=== PATIENT | male | born 1955 | race Caucasian/White ===

== ENCOUNTER 2017-07-17 11:21 | Emergency (ER) | payer OTHER ==
[~2017-07-17] VITALS: Ht 177.8 cm; Wt 91.3 kg
[~2017-07-17 11:21] MED LIST: ENOX40SY4 SQ; FERR325T18 PO; HYDR-882 PO; HYDR2TAB29 PO; METF10002 PO; MORP-52 PO; OXYC1TAB8 PO; PARO40TA61 PO; SULF1TAB24 PO; [UNRECOGNIZED DRUG - OTHER] PO; [UNRECOGNIZED DRUG - OTHER] PO
[2017-07-17 12:49] LABS: PATH.CAST-FLAG NOT PRESENT; SPERM-FLAG NOT PRESENT; SRC-FLAG NOT PRESENT; XTAL-FLAG NOT PRESENT; YLC-FLAG NOT PRESENT
[2017-07-17 12:54] LABS: HEMATOCRIT 40.9 % (39.2-51.8); HEMOGLOBIN 13.8 g/dL (13.7-18.0); WHITE BLOOD COUNT 5.2 x10^3/uL (3.4-10)
[2017-07-17 13:02] LABS: BLOOD UREA NITROGEN 20 mg/dL (7-18)
[2017-07-17 13:18] LABS: IS PT STATUS REG ER OR PRE ER? YES
[2017-07-17] MEDS ORDERED: CEFDINIR 300 MG CAPSULE PO ONE (13:30)
[2017-07-17 14:37] VITALS: BP 124/73
== END 2017-07-17 14:39 | disposition home or self-care (01) ==
LOC: ED 12:21
DX: E11.65 Type 2 diabetes mellitus with hyperglycemia (principal); N30.90 Cystitis, unspecified without hematuria; R41.3 Other amnesia; E11.40 Type 2 diabetes mellitus with diabetic neuropathy, unspecified; Z88.5 Allergy status to narcotic agent; Z88.6 Allergy status to analgesic agent
CPT/HCPCS: 36415; 70450; 80048; 81001; 82040; 82962; 83605; 84484; 85025; 87086; 93005; 99285

== ENCOUNTER 2017-08-01 17:39 | Emergency (ER) | payer OTHER ==
[~2017-08-01] VITALS: Ht 177.8 cm; Wt 88.0 kg
[2017-08-01 17:41] VITALS: BP 115/71
[2017-08-01] MEDS ORDERED: SODIUM CHLORIDE 0.9% 1,000ML IVBOLUS ONE (18:00)
[2017-08-01 18:21] LABS: HEMATOCRIT 42.8 % (39.2-51.8); HEMOGLOBIN 14.8 g/dL (13.7-18.0); WHITE BLOOD COUNT 4.5 x10^3/uL (3.4-10)
[2017-08-01 18:22] LABS: PH, VENOUS 7.274 pH (7.320-7.420)
[2017-08-01 18:30] LABS: ASPARTATE AMINO TRANSFERASE 24 U/L (15-37); BLOOD UREA NITROGEN 20 mg/dL (7-18)
== END 2017-08-01 20:09 | disposition left against medical advice (07) ==
LOC: ED 20:03
DX: E11.65 Type 2 diabetes mellitus with hyperglycemia (principal); Z91.14 Patient's other noncompliance with medication regimen
CPT/HCPCS: 36415; 80053; 82010; 82803; 82962; 85025; 99284

== ENCOUNTER 2018-02-09 11:04 | Inpatient (IN) | payer OTHER ==
[~2018-02-09] VITALS: Ht 177.8 cm; Wt 77.2 kg
[~2018-02-09 11:04] MED LIST changes: +THROMBIN 5,000 UNIT VIAL TP ONE; +TRANEXAMIC ACID 100 MG/ML, 10ML ONE; +VANCOMYCIN 1,000 MG ONE
[2018-02-09 12:02] VITALS: BP 118/74
[2018-02-09] MEDS ORDERED: LACTATED RINGERS 1,000 ML IV SCH (12:06)
[2018-02-09 12:34] LABS: BASOPHILS # (AUTO) 0.04 x10^3/uL (0-0.1); BASOPHILS % (AUTO) 1 % (0-1); EOSINOPHILS # (AUTO) 0.43 x10^3/uL (0-0.4); EOSINOPHILS % (AUTO) 9 % (1-7); LYMPHOCYTES # (AUTO) 2.22 x10^3/uL (1-3.4); LYMPHOCYTES % (AUTO) 45 % (22-44); MD NO; MEAN CORPUSCULAR HEMOGLOBIN 29.6 pg (27.5-34.5); MEAN CORPUSCULAR HGB CONC 33.3 g/dL (33.2-36.2); MEAN CORPUSCULAR VOLUME 88.9 fL (81-97); MEAN PLATELET VOLUME 6.5 fL (7.4-10.4); MONOCYTES # (AUTO) 0.56 x10^3/uL (0.2-0.8); MONOCYTES % (AUTO) 11 % (2-9); NEUTROPHILS # (AUTO) 1.72 x10^3/uL (1.8-6.8); NEUTROPHILS % (AUTO) 35 % (42-75); PLATELET COUNT 368 x10^3/uL (130-400); RED BLOOD COUNT 4.54 x10^6/uL (4.38-5.82); RED CELL DISTRIBUTION WIDTH 17.5 % (9.4-14.8)
[2018-02-09 12:43] LABS: ANION GAP 4 mmol/L (5-15); CALCIUM 9.4 mg/dL (8.5-10.1); CHLORIDE 107 mmol/L (98-107); CREATININE 0.75 mg/dL (0.7-1.3)
[2018-02-09] MEDS ORDERED: ONDANSETRON 2MG/ML, 2ML ONE (13:38)
[2018-02-09] MEDS ORDERED: MIDAZOLAM 1 MG/ML, 2ML ONE (13:38)
[2018-02-09] MEDS ORDERED: FENTANYL PF 250 MCG/5ML ONE (13:38)
[2018-02-09] MEDS ORDERED: CEFAZOLIN 1,000 MG ONE (13:38)
[2018-02-09] MEDS ORDERED: PROPOFOL 10 MG/ML, 20ML ONE (13:38)
[2018-02-09] MEDS ORDERED: BUPIVACAINE LIPOSOME/PF INFIL ONE (14:00)
[2018-02-09] MEDS ORDERED: TRANEXAMIC ACID 100 MG/ML, 10ML ONE ×3 (14:05)
[2018-02-09] MEDS ORDERED: BUPIVACAINE/PF 0.5% ONE (14:17)
[2018-02-09] MEDS ORDERED: EPINEPHRINE 1 MG/ML, 1ML ONE (14:17)
[2018-02-09] MEDS ORDERED: PROPOFOL 50 ML ONE ×2 (14:41→15:22)
[2018-02-09] MEDS ORDERED: BUPIVACAINE/PF-EPI 0.5% 1:200K INFIL ONE (14:43)
[2018-02-09 15:32] LABS: MICROSCOPIC AUTO
[2018-02-09 15:35] LABS: CULTURE INDICATED? NO
[2018-02-09 15:47] LABS: INTERNATIONAL NORMALIZED RATIO 1.01 (0.93-1.1); PROTHROMBIN TIME 10.5 Seconds (9.6-11.5)
[2018-02-09] MEDS ORDERED: PROMETHAZINE 25 MG/ML, 1ML IV PRN (17:00)
[2018-02-09] MEDS ORDERED: LORazepam 2 MG/ML, 1ML IVPush PRN (17:00)
[2018-02-09] MEDS ORDERED: HYDROcodone/APAP 7.5-325MG/15ML UDC PO PRN (17:00)
[2018-02-09] MEDS ORDERED: HYDROmorphone 1 MG/ML, 1ML IV PRN (17:00)
[2018-02-09] MEDS ORDERED: LABETALOL 5MG/ML, 20ML IV PRN (17:00)
[2018-02-09] MEDS ORDERED: hydrALAzine 20 MG/ML, 1ML IV PRN (17:00)
[2018-02-09] MEDS ORDERED: PROMETHAZINE 12.5 MG SUPP PR PRN (17:00)
[2018-02-09] MEDS ORDERED: ALBUTEROL SULFATE 2.5 MG/3 ML NPPB PRN (17:00)
[2018-02-09] MEDS ORDERED: MEPERIDINE/PF 25MG/0.5ML IVPush PRN (17:00)
[2018-02-09] MEDS ORDERED: CEFAZOLIN 0 MG in SODIUM CHLORIDE 0.9% 50 ML IV SCH (17:30)
[2018-02-09] MEDS ORDERED: OXYcodone/APAP 5/325MG TABLET PO PRN (17:30)
[2018-02-09] MEDS ORDERED: ONDANSETRON 2MG/ML, 2ML IVPush PRN (17:30)
[2018-02-09] MEDS ORDERED: MORPHINE SULFATE 4 MG/ML, 1ML IVPush PRN (17:30)
[2018-02-09] MEDS ORDERED: HYDROcodone/APAP 7.5-325MG/15ML UDC ONE (17:56)
[2018-02-09] MEDS ORDERED: morphine SULFATE 10 MG/ML, 1ML ONE (17:56)
[2018-02-09] MEDS: morphine SULFATE 10 MG/ML, 1ML IV PRN ×2 (18:00→18:14)
[2018-02-09] MEDS ORDERED: FENTANYL PF 100 MCG/2ML ONE (18:08)
[2018-02-09] MEDS: FENTANYL PF 100 MCG/2ML IV PRN ×2 (18:09→18:18)
[2018-02-09 19:05] VITALS: BP 128/77
[2018-02-09] MEDS: metFORMIN 500 MG TABLET PO SCH (21:26)
[2018-02-09] MEDS: D5%-0.45NACL+KCL 20MEQ 1,000 ML IV SCH (21:26)
[2018-02-09] MEDS: CEFAZOLIN 2,000 MG in DEXTROSE 5% 50 ML IVPB SCH (21:27)
[2018-02-10 00:19] VITALS: BP 102/57
[2018-02-10] MEDS: DIAZEPAM 5 MG/ML, 10ML VIAL IV PRN (01:34)
[2018-02-10 03:29] VITALS: BP 100/55
[2018-02-10] MEDS: CEFAZOLIN 2,000 MG in DEXTROSE 5% 50 ML IVPB SCH (06:12)
[2018-02-10] MEDS: D5%-0.45NACL+KCL 20MEQ 1,000 ML IV SCH ×2 (06:39→20:00)
[2018-02-10 07:47] VITALS: BP 99/50
[2018-02-10] MEDS: DARUNAVIR HOMEMEDPO SCH (09:00)
[2018-02-10] MEDS ORDERED: EMTRICITABINE/TENOFOVIR 200 MG/300 MG TABLET PO SCH (09:00)
[2018-02-10] MEDS: COBICISTAT HOMEMEDPO SCH (09:00)
[2018-02-10] MEDS: PAROXETINE 20 MG TABLET PO SCH (09:00)
[2018-02-10] MEDS: TENOFOVIR HOMEMEDPO SCH (09:00)
[2018-02-10] MEDS: EMTRICITABINE HOMEMEDPO SCH (09:00)
[2018-02-10] MEDS: metFORMIN 500 MG TABLET PO SCH ×2 (09:00→22:07)
[2018-02-10] MEDS ORDERED: [UNRECOGNIZED DRUG - OTHER] PO SCH (09:00)
[2018-02-10] MEDS: INSULIN REGULAR 100 UNITS/ML, 3ML VIAL SQ-INSULIN SCH ×3 (11:00→22:07)
[2018-02-10 12:05] VITALS: BP 111/62
[2018-02-10 19:26] VITALS: BP 122/67
[2018-02-11 01:47] VITALS: BP 111/65
[2018-02-11 07:43] VITALS: BP 116/63
[2018-02-11] MEDS: INSULIN REGULAR 100 UNITS/ML, 3ML VIAL SQ-INSULIN SCH ×4 (07:46→21:06)
[2018-02-11] MEDS: DARUNAVIR HOMEMEDPO SCH (09:50)
[2018-02-11] MEDS: COBICISTAT HOMEMEDPO SCH (09:50)
[2018-02-11] MEDS: EMTRICITABINE HOMEMEDPO SCH (09:51)
[2018-02-11] MEDS: metFORMIN 500 MG TABLET PO SCH ×2 (09:51→22:05)
[2018-02-11] MEDS: TENOFOVIR HOMEMEDPO SCH (09:51)
[2018-02-11] MEDS: D5%-0.45NACL+KCL 20MEQ 1,000 ML IV SCH ×2 (09:51→22:08)
[2018-02-11] MEDS: PAROXETINE 20 MG TABLET PO SCH (09:51)
[2018-02-11] MEDS ORDERED: chlorPROMAZINE 25 MG/ML, 1ML IM PRN (11:30)
[2018-02-11 13:20] VITALS: BP 123/72
[2018-02-11 19:11] VITALS: BP 116/65
[2018-02-11 19:50] VITALS: BP 103/64
[2018-02-11] MEDS: DIAZEPAM 5 MG/ML, 10ML VIAL IV PRN (21:07)
[2018-02-12 00:24] VITALS: BP 99/63
[2018-02-12] MEDS: INSULIN REGULAR 100 UNITS/ML, 3ML VIAL SQ-INSULIN SCH ×4 (07:10→20:30)
[2018-02-12 07:12] VITALS: BP 106/62
[2018-02-12] MEDS: PAROXETINE 20 MG TABLET PO SCH (08:24)
[2018-02-12] MEDS: DOCUSATE 100 MG CAPSULE PO SCH ×2 (08:24→20:30)
[2018-02-12] MEDS: metFORMIN 500 MG TABLET PO SCH ×2 (08:24→20:30)
[2018-02-12] MEDS: EMTRICITABINE HOMEMEDPO SCH (08:25)
[2018-02-12] MEDS: COBICISTAT HOMEMEDPO SCH (08:25)
[2018-02-12] MEDS: TENOFOVIR HOMEMEDPO SCH (08:25)
[2018-02-12] MEDS: DARUNAVIR HOMEMEDPO SCH (08:25)
[2018-02-12] MEDS ORDERED: BISACODYL 10 MG SUPP PR PRN (08:30)
[2018-02-12] MEDS ORDERED: EMTR1TAB14 PO (08:42)
[2018-02-12] MEDS ORDERED: DARU1TAB PO (08:42)
[2018-02-12] MEDS: D5%-0.45NACL+KCL 20MEQ 1,000 ML IV SCH (12:03)
[2018-02-12] MEDS: POLYETHYLENE GLYCOL 17 GM PACKET PO PRN (12:10)
[2018-02-12 13:30] VITALS: BP 101/61
[2018-02-12 19:53] VITALS: BP 103/66
[2018-02-13] MEDS: D5%-0.45NACL+KCL 20MEQ 1,000 ML IV SCH ×2 (01:30→12:16)
[2018-02-13 04:22] VITALS: BP 122/75
[2018-02-13] MEDS: INSULIN REGULAR 100 UNITS/ML, 3ML VIAL SQ-INSULIN SCH ×2 (06:32→11:17)
[2018-02-13 07:10] VITALS: BP 108/63
[2018-02-13] MEDS: metFORMIN 500 MG TABLET PO SCH (08:14)
[2018-02-13] MEDS: PAROXETINE 20 MG TABLET PO SCH (08:14)
[2018-02-13] MEDS: DOCUSATE 100 MG CAPSULE PO SCH (08:14)
[2018-02-13] MEDS: COBICISTAT HOMEMEDPO SCH (08:14)
[2018-02-13] MEDS: DARUNAVIR HOMEMEDPO SCH (08:14)
[2018-02-13] MEDS: POLYETHYLENE GLYCOL 17 GM PACKET PO PRN (08:14)
[2018-02-13] MEDS: EMTRICITABINE HOMEMEDPO SCH (08:15)
[2018-02-13] MEDS: TENOFOVIR HOMEMEDPO SCH (08:15)
[2018-02-13 13:26] VITALS: BP 122/73
== END 2018-02-13 15:16 | disposition home or self-care (01) | DRG 460 ==
LOC: ORIP 11:04 → INTOOBSV 11:04 → OBSVTOIN 11:04 → 4NOR 19:02
PROVIDERS: ADMIT Orthopaedic Surgery Orthopaedic Surgery of the Spine; ATTEND Orthopaedic Surgery Orthopaedic Surgery of the Spine
PROC: 0SG1071 Fusion of 2 or more Lumbar Vertebral Joints with Autologous Tissue Substitute, Posterior Approach, Posterior Column, Open Approach (ICD-10-PCS; 2018-02-09)
PROC: 0SP004Z Removal of Internal Fixation Device from Lumbar Vertebral Joint, Open Approach (ICD-10-PCS; 2018-02-09)
PROC: 4A11X4G Monitoring of Peripheral Nervous Electrical Activity, Intraoperative, External Approach (ICD-10-PCS; 2018-02-09)
PROC: 30233L1 Transfusion of Nonautologous Fresh Plasma into Peripheral Vein, Percutaneous Approach (ICD-10-PCS; 2018-02-09)
PROC: 30233N1 Transfusion of Nonautologous Red Blood Cells into Peripheral Vein, Percutaneous Approach (ICD-10-PCS; 2018-02-09)
PROC: 30233K1 Transfusion of Nonautologous Frozen Plasma into Peripheral Vein, Percutaneous Approach (ICD-10-PCS; 2018-02-09)
PROC: 0RGA071 Fusion of Thoracolumbar Vertebral Joint with Autologous Tissue Substitute, Posterior Approach, Posterior Column, Open Approach (ICD-10-PCS; principal; 2018-02-09 13:00)
DX: T84.226A Displacement of internal fixation device of vertebrae, initial encounter (principal); S32.021A Stable burst fracture of second lumbar vertebra, initial encounter for closed fracture; M96.0 Pseudarthrosis after fusion or arthrodesis; E11.9 Type 2 diabetes mellitus without complications; Y83.8 Other surgical procedures as the cause of abnormal reaction of the patient, or of later complication, without mention of misadventure at the time of the procedure; Y79.8 Miscellaneous orthopedic devices associated with adverse incidents, not elsewhere classified; M85.80 Other specified disorders of bone density and structure, unspecified site; Y92.89 Other specified places as the place of occurrence of the external cause; Z89.512 Acquired absence of left leg below knee
CPT/HCPCS: 36415; 72080; 80048; 81001; 82962; 85025; 85610; 86850; 86900; 86923; 93005; C1713; C9290; J0171; J0690; J1815; J2250; J2405; J2704; J3010; J3230; J3360; J3370; J3490; C1762; J2270; J3480; J7120; P9016; P9017